=== PATIENT | female | born 1980 | race Caucasian/White ===

== ENCOUNTER 2016-09-23 16:07 | Inpatient (IN) | payer OTHER ==
[~2016-09-23] VITALS: Ht 162.6 cm; Wt 96.6 kg
[~2016-09-23 16:07] MED LIST: ASCO-294 PO; DOCU-41 PO; FERR-83 PO; IBUP800T28 PO; PREN-148 PO
--- NOTE | 2016-09-23 17:27 | DRSVH ---
PROCEDURE: US OB BIOPHYSICAL PROFILE AND UMBILICAL DOPPLER INDICATIONS: POSSIBLE IUGR - BLOOD FLOW OUTSIDE/PRIOR DATING DATA: Last menstrual period (LMP): 12/23/15. LMP-based estimated date of delivery (LYNETTE): 09/28/16. First dating scan (date and location): 04/03/16. Estimated date of delivery (LYNETTE) from first dating scan: 10/02/16. TECHNIQUE: Real-time scanning was performed of the fetus for biophysical profile, with image documentation. Col or and pulse Doppler interrogation was also performed of the umbilical artery near its insertion into the placenta. COMPARISON: [facility] Ultrasound, US, US OB FOLLOW UP GROWTH, 09/22/2016, 13:34. [facility] Ultrasound, US, US OB REEVAL INCOMP ANATMY LTD, 05/21/2016, 10:10. [facility] Ultrasound, US, US OB>14 WKS ANATOMY COMP, 05/06/2016, 10:07. [facility] Ultras ound, US, US OB FOLLOW UP GROWTH, 04/03/2016, 9:12. FINDINGS: General: A single living intrauterine gestation is present. Presentation: Vertex. Placenta: Placental position is anterior, without previa. OB-DEPUTY REGISTER OF DEEDS Ultrasound Procedure Report Summary Fetus Summary Heart Rate: 152 bpm Gestational Age from initial dating scan: 38 weeks, 5 days Findings(Amniotic Sac) Amniotic Fluid Index (SAW): 13.60 cm Pelvis and Uterus Cervix Length (Mean): 3.27 cm Biophysical Profile Amniotic Fluid Volume: 2 Breathin Gross Body Movement: 2 Tone: 2 Biophysical Profile Sum Score: 6 Findings(Pelvic Vascular Structure) Umbilical Artery S/D Ratio: 1.95, 2.51 There is normal appearance of the chest, stomach, kidneys and urinary bladder IMPRESSION: Single living intrauterine fetus in vertex presentation. Normal SAW. 6/8 biophysical profile score as above. Normal cord Doppler examination. Findings were provided to the patient's nurse (Debby Bonds RN) at the time of study 1715 hours on by the manager r d. Dictated by: Mane Carnes M.D. on 09/23/2016 at 17:22 Approved by: Mane Carnes M.D. on 09/23/2016 at 17:25
[2016-09-23] MEDS ORDERED: Lactated Ringer's 1,000 ML IV PRN (18:53)
[2016-09-23] MEDS ORDERED: Oxytocin 10 Unit/mL Inj IM PRN (18:55)
[2016-09-23] MEDS ORDERED: Penicillin G K Inj 5,000,000 UNITS in Dextrose 5% Minibag Plus 100 ML IV ONE (18:55)
[2016-09-23] MEDS ORDERED: Methylergonovine 0.2 mg/mL Inj IM PRN (18:55)
[2016-09-23] MEDS ORDERED: Carboprost 250 mCg/mL Inj IM PRN (18:55)
[2016-09-23] MEDS ORDERED: Ondansetron 2 mg/mL 2 mL Inj IVPUSH PRN (18:55)
[2016-09-23] MEDS ORDERED: Sodium Chloride LOK Flush 10 mL Syringe IVFLUSH PRN (18:55)
[2016-09-23] MEDS ORDERED: Oxytocin 30 Units/500 mL LR 30 UNITS in IV Premix 1 EACH IV PRN (18:55)
[2016-09-23] MEDS ORDERED: Hemorrhage Kit, Post Partum XX ONE (18:55)
[2016-09-23] MEDS ORDERED: fentaNYL-PF 50 mCg/mL 2 mL Inj IVPUSH PRN (18:55)
[2016-09-23] MEDS ORDERED: diphenhydrAMINE 50 mg Capsule PO PRN (18:55)
[2016-09-23 19:14] LABS: Mean Corpuscular Hemoglobin 30.9 pg (27.0-35.0); Mean Corpuscular Volume 89.6 fL (81-100)
--- NOTE | 2016-09-23 20:23 | PCM.HPOB ---
Subjective Referring Provider: Admitting Physician: Janae Dawkins MD Primary Care Physician: Nopcp Attending Physician: Janae Dawkins MD Chief Complaint "contractions" History of Present History of Present Illness Ms. Jim Edmond is a 36 year old woman at 39 weeks 2 days gestation with an LYNETTE of 09/28/2016 based on LMP who presented to the [facility] for a biophysical profile (BPP) and NST due to possible intrauterine growth restriction. Her BPP score was 6/8 but NST showed an early deceleration. Patient reports that she started to have contractions while here in the hospital. She has not had any fluid leakage, vaginal discharge, or bleeding. She does not have headache, blurred vision, chest pain, dyspnea, nausea, vomiting, or abdominal pain outside of contractions. She does not want an epidural at this time. 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 Ultrasound done on 09/22/2016 showed estimated weight in the 15th percentile, head circumference and femoral length estimated less than 5%. Gynecologic History: Denies history of sexual transmitted infections Menarche at age 16 Medical History: Depression Tobacco use History of substance abuse Surgical History: Tonsillectomy Hx Tobacco Use: Yes Smoking Status: Current Every Day Smoker (0.5 ppd) Hx Alcohol Use: No Hx Substance Use: Yes (Last methamphetamine use in 12/2015 when she found out that she was . Completed recovery program.) Past Family History Family History Maternal grandmother has diabetes mellitus Review of Systems Eyes: Denies: Blurred Vision, Double Vision Cardiovascular: Denies: Chest Pain Respiratory: Denies: SOB with Exertion Gastrointestinal: Denies: Abdominal Pain, Nausea, Vomiting Medications Home medications vitamin Allergy Coded Allergies: No Known Allergies (Verified , 10/09/04) Exam Vital Signs Temperature 36.5C, heart rate 76, blood pressure 124/61, respiratory rate 18 Exam Baseline currently 160s with variability and accelerations An early deceleration was noted prior to admission Constitutional: Well-developed, Well-nourished HEENT: Atraumatic, EOMI, Scleral Anicteric Lungs: Clear to Percussion, Normal Air Movement Heart: Regular Rate/Rhythm, Normal S1, Normal S2, No Murmurs/Rubs/Gallops Abdomen: Gravid Extremities: Pulses Palpable x4, Warm, Edema (mild bilateral ankles) Neurological/Psychiatric: Alert, Oriented X3, Cooperative, No Acute Distress Neuro: Grossly Neurologically Intact Labs/Diagnostics Labs Item Value Date Time White Blood Count 13.3 th/mm3 H 09/23/161899 Red Blood Count 4.53 mil/mm3 09/23/161899 Hemoglobin 14.0 g/dL 09/23/161899 Hematocrit 40.6 % 09/23/161899 Platelet Count 204 gregorio/L 09/23/161899 Urine Opiates Screen Negative 09/23/161717 Urine Methadone Screen Negative 09/23/161717 Urine Barbiturates Screen Negative 09/23/161717 Urine Amphetamines Screen Negative 09/23/161717 Urine Benzodiazepines Screen Negative 09/23/161717 Urine Cocaine Metabolite Screen Negative 09/23/161717 Urine Cannabinoids Screen Negative 09/23/161717 Maternal Blood Type: O (positive) Antibody Screen: negative Group B Strep Results: Positive Rubella: Immune Additional Information labs: Blood type O positive, antibody screen negative, varicella nonimmune, rubella immune, RPR nonreactive, HBsAg negative, HIV nonreactive, hepatitis C negative, hemoglobin A1c 5.2%, TSH 0.763, gonorrhea and chlamydia negative, GBS positive OB Intrapartum Assessment/Plan Assessment 36 year old woman at 39 weeks 2 days gestation with an LYNETTE of 09/28/2016 based on LMP who presented to the [facility] for a biophysical profile (BPP) and NST due to possible intrauterine growth restriction GBS positive Varicella non-immune Depression Tobacco use History of substance abuse Intrapartum plan 36 year old woman at 39 weeks 2 days gestation with an LYNETTE of 09/28/2016 based on LMP who presented to the [facility] for a biophysical profile (BPP) and NST due to possible intrauterine growth restriction This has been complicated by tobacco use, subchorionic hematoma visualized on initial ultrasound, varicella nonimmune, UTI treated with Macrobid at the start of , depression, short interval (last delivery was August 2015), 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 Ultrasound done on 09/22/2016 showed estimated weight in the 15th percentile, head circumference and femoral length estimated less than 5%. - GBS positive, start penicillin once contractions start - Start Pitocin for labor induction due heart rate deceleration - Continue to monitor heart rate Varicella non-immune - Vaccinate post- Depression - Monitor symptoms Tobacco use - Pt declined nicotine patch History of substance abuse -UDS negative in the hospital and patient had negative UDS at each visit Attending Statement The patient was seen and examined together with Dr. Lilian Abdalla DO on 2016 and I agree with the history, exam and plan as outlined in the note above. Lilian Abdalla DO Sep 23, 2016 19:50 Jen Mcdaniel MD Sep 24, 2016 08:13
[2016-09-23] MEDS: Lactated Ringer's 1,000 ML IV SCH (21:31)
[2016-09-24] MEDS: Penicillin G K Inj 3,000,000 UNITS in IV Premix 1 EACH IV SCH ×2 (02:33→06:36)
[2016-09-24] MEDS: Lactated Ringer's 1,000 ML IV SCH ×3 (05:02→13:55)
[2016-09-24] MEDS ORDERED: Lactated Ringer's 500 ML IV ONE (05:55)
[2016-09-24] MEDS ORDERED: Phenylephrine/NS-PF 100 mCg/mL 5 mL Syringe IVPUSH PRN (05:55)
[2016-09-24] MEDS ORDERED: Nalbuphine 10 mg/mL Inj IV PRN (05:55)
[2016-09-24] MEDS ORDERED: EPHEDrine Sulfate 50 mg/mL Inj IVPUSH PRN (05:55)
[2016-09-24] MEDS ORDERED: Atropine 1 mg/10 mL (Code) Syringe IVPUSH PRN (05:55)
[2016-09-24] MEDS ORDERED: Ondansetron 2 mg/mL 2 mL Inj IVPUSH PRN (05:55)
[2016-09-24] MEDS ORDERED: fentaNYL 2 mCg/mL-Bupiv 0.125% 100 ML EPIDURAL SCH (05:55)
--- NOTE | 2016-09-24 05:55 | PCM.HPANE ---
Patient Data Date of Service: Sep 24, 2016 Surgeon Admitting Provider:Janae Dawkins MD Attending Provider:Janae Dawkins MD Primary Care Physician:Nopcp Other Provider: Reason for Visit LABOR LABOR Ht/WT & BMI Body Mass Index Allergies Coded Allergies: No Known Allergies (Verified , 10/09/04) Past Anesthesia History Anesthesia History: Denies:: Abnormal Airway Diabetes History Hx Diabetes?: No MRSA MRSA: No Medications Hypertension Medication: No Home Meds Incl Beta Reynaldo: No Active Scripts Ascorbate Calcium (Vitamin C)500 Mg [id number] Mg PO DAILY #60 TABLET Take with Iron. Prov:Tato Watson DO 08/27/15 Ferrous Sulfate 325 Mg [id number] Mg PO DAILY #60 TABLET Ref 0 Prov:Tato Watson DO 08/27/15 Docusate Sodium (Colace)100 Mg [id number] Mg PO BID PRN For Constipation #60 CAPSULE Ref 0 Prov:Tato Watson DO 08/27/15 Ibuprofen 800 Mg [id number] Mg PO TID PRN For Pain #40 TABLET Prov:Tato Watson DO 08/27/15 Reported Medications Vit No.124/Iron/FA ( Vitamin Tablet)27 Mg Iron-800 Mcg Tablet1 Each PO DAILY 08/26/15 History History of ENT Problems?: No HEENT History: Denies:: Abnormal Airway Denture Type: None Teeth Condition: Broken Teeth Tooth Decay Missing Teeth Hx of Heart Problems?: No Cardiovascular History: Denies:: Irregular Heartbeat Hx of Respiratory Problem?: No Respiratory History: Denies:: Asthma Hx Neurologic Problems?: Yes (hx substance (methamphetamine) abuse, now sober) Hx of GI Problems?: No Hx of Problems?: No Hx Musculoskeletal Problems?: No Hx of Psycho/Social Problems?: Yes (substance abuse) Hx Surgeries?: No Hx Alcohol Use: NoHx Substance Use: Yes (Last methamphetamine use in 12/2015 when she found out that she was . Completed recovery program.) Smoking Status: Current Every Day Smoker (0.5 ppd) Stop/Bang Risk Assessment Category Category 1A: Patient has history of documented sleep apnea, and HAS NOT received any narcotic, sedative or anesthesia administration during this stay. Category 1B: Patient has history of documented sleep apnea, and HAS received any narcotic , sedative or anesthesia administration during this stay Category 2: Patient has SUSPECTED Obstructive Sleep Apnea, and HAS received any narcotic , sedative or anesthesia administration during this stay. Category 3: Patient has SUSPECTED Obstructive Sleep Apnea and HAS NOT received narcotic, sedative or anesthesia administration during this stay. Category 4: Outpatient in Procedural Areas with known sleep apnea or who screen positive for High Risk via the STOP/BANG questionnaire. Exam Exam Vital Signs seen RN charting, normal hemodynamics, oxygenation, respirations General Appearance: Alert, Oriented X3, Cooperative, No Acute Distress HEENT/AIRWAY: MP 2 Lungs: Clear to Auscultation, Normal Air Movement Heart: Regular Rate/Rhythm, Normal S1, Normal S2, No Murmurs/Rubs/Gallops Meds/Labs/Diagnostics Admission Meds Current Medications Penicillin G Potassium [id number] units/Dextrose/ Water 100 ml @ 240 mls/hr ONCE ONCE IV Last administered on 09/23/16 22:22; Start 09/23/16 at 18:55; Stop 02/28 at 19:19; Status DC Penicillin G Potassium/ Dextrose [id number] units/Premix 50 ml @ 100 mls/hr Q4 IV Last administered on 09/24/16 02:33; Start 09/24/16 at 00:30 Lactated Ringer's (Lr) 1,000 ml @ 125 mls/hr Q8H IV Last administered on 05:02; Start 09/23/16 at 18:53 Labs Test 09/23/16 17:17 09/23/16 17:18 09/23/16 19:00 Hold Urine Received (Received) Urine Opiates Screen Negative Urine Methadone Screen Negative Urine Barbiturates Screen Negative Urine Amphetamines Screen Negative Urine Benzodiazepines Screen Negative Urine Cocaine Metabolite Screen Negative Urine Cannabinoids Screen Negative White Blood Count 13.3th/mm3 (3.8-10.1) Red Blood Count 4.53mil/mm3 (3.90-5.20) Hemoglobin 14.0g/dL (12.0-15.6) Hematocrit 40.6% (35.0-46.0) Mean Corpuscular Volume 89.6fL (81-100) Mean Corpuscular Hemoglobin 30.9pg (27.0-35.0) Mean Corpuscular Hemoglobin Concent 34.5% (32.0-37.0) Red Cell Distribution Width 13.6% (12.3-15.4) Platelet Count 204bil/L (150-400) Plan Impression Patient chart reviewed, patient interviewed and anesthestic plan with risks, benefits, and alternatives discussed, and informed consent obtained. ASA Physical Status: ASA1 Plus Emergency Anesthetic Plan: Epidural Bene/Risks/Altern/Consents: Yes HP Complete Prior to Induction: Yes Anson Bullock MD Sep 24, 2016 05:54
[2016-09-24] MEDS ORDERED: fentaNYL 2 mCg/mL-Bupivicaine 0.125% 100 mL Premix EPIDURAL ONE (06:03)
[2016-09-24] MEDS: Sodium Chloride LOK Flush 10 mL Syringe IVFLUSH SCH ×2 (08:30→16:30)
[2016-09-24] MEDS ORDERED: Lactated Ringer's 1,000 ML IV SCH (12:24)
[2016-09-24] MEDS ORDERED: LANOlin HPA 7 Gm Ointment TOPICAL PRN (12:25)
[2016-09-24] MEDS ORDERED: Carboprost 250 mCg/mL Inj IM PRN (12:25)
[2016-09-24] MEDS ORDERED: Witch Hazel-Glycerin Pads TOPICAL PRN (12:25)
[2016-09-24] MEDS ORDERED: Methylergonovine 0.2 mg/mL Inj IM PRN (12:25)
[2016-09-24] MEDS ORDERED: Oxytocin 30 Units/500 mL LR 30 UNITS in IV Premix 1 EACH IV PRN (12:25)
[2016-09-24] MEDS ORDERED: Benzocaine (Dermoplast) 20% 60 Gm Spray TOPICAL PRN (12:25)
[2016-09-24] MEDS ORDERED: Oxytocin 10 Unit/mL Inj IM PRN (12:25)
[2016-09-24] MEDS ORDERED: Hemorrhage Kit, Post Partum XX ONE (12:25)
[2016-09-24] MEDS ORDERED: HYDROcodone-APAP 5-325 mg Tablet PO PRN (12:25)
--- NOTE | 2016-09-24 13:05 | OP ---
[address] [address] OPERATIVE REPORT PATIENT: ARNIE SOLORZANO : 1980 MR#: [id number] ADMIT: 09/23/2016 JOB ID: [id number] DATE OF SURGERY: 09/24/2016 SURGEON: Janae Dawkins MD PREOPERATIVE DIAGNOSIS(ES): POSTOPERATIVE DIAGNOSIS(ES): DELIVERY NOTE: This is a 36-year-old female, 5, para five now, at 39 weeks plus four days today. She was admitted to [facility] yesterday when she was planned for NST, BPP, and Doppler and noticed 3-4 minute prolonged decelerations. She was started on Pitocin induction this morning at around 4:00 to 5:00. She started to have labor pain and got epidural around 6:00. When I started my shift after 7:00 it was noted she has frequent contractions every 2-3 minutes with multiple recurrent variable decelerations and intermittent late decelerations. The baseline was also at around 170. At this time intrauterine resuscitation was performed with discontinuation of Pitocin, IV fluid, oxygen and change of position. The heart tracing gradually improved to category one and then Pitocin was restarted. At that time AROM was also performed. Before the AROM was performed, the vaginal bleeding was relatively heavier than normal show, which is dark red. After the AROM was done, noted at the very beginning of clear amniotic fluid and then hard to tell because of the vaginal bleeding. More likely is vaginal bleeding combined together with the fluid looks bloody. The heart tracing mostly looks reassuring with the baseline back to 140s with occasional variable decelerations. The variability of the heart tracing was moderate. No accelerations. After AROM with Pitocin, the patient gradually developed to 8 cm, and then 9 cm, and then full dilation. During this process still noticed relatively heavier show than most of the delivery. At this time we realized there is a possibility of partial margin placenta abruption. Two units of PRBC crossmatch and hold. When the patient was noted to be fully dilated, she was ROP position. She had back pain and she had a strong urge to push. The patient was instructed to push and there was significant descent of the head with pushing. With several contractions, the was delivered in DIVYA position. The shoulder and chest delivered without difficulty. The was placed on mother's chest. Cord clamped and cut. After delayed cord clamp was performed after the disappearing of the pulsation. Regular cord blood collected. After about 1 minute after delivery, the placenta also delivered. It was noticed blood clots attached to the placenta at about 1/3 of the whole area. Those are direct signs of partial abruption. After the placenta delivered, the uterus was massaged and noticed well contracted uterus. The vaginal bleeding was not heavy. Perineum examined and noticed no laceration. The placenta will be sent for pathology. The patient tolerated the procedure well. EBL during delivery was about 200 mL. All instruments, needles, laps, and gauzes counted correct twice. The score of the infant was 8 and nine. The weight was not available at dictation, subjectively likely SGA. MTDD
--- NOTE | 2016-09-24 18:49 | NUR ---
Social Work Note D/A/P: Referral Received. Pt reported a history of substance use to [facility] staff. BIOINFORMATICS DEVELOPER assessment requested. BIOINFORMATICS DEVELOPER spoke with green prize packer Kim and it was agreed that Pt could be seen by BIOINFORMATICS DEVELOPER on 09/25/2016. BLAKE Matthew, AAC
--- NOTE | 2016-09-24 23:54 | PCM.ANEP1 ---
Post Anesthesia PACU Phase 1 Assessment Anesthetic Administered: Epidural Level of Alertness: Awake, talking OJHNS's with Equal Strength: Yes Pain: No Nausea or Vomiting: No CV Function & Hydration Stable: Yes Airway Device: Oxygen Delivery: Room Air Lungs: Clear to Auscultation, Normal Air Movement Dermatome Level: Full Sensation PACU Phase 2 Assessment Complications: No Follow up Care: N/A Patient Instructions Provided: Yes Star Hdez MD Sep 24, 2016 23:54
[2016-09-25 07:46] LABS: Mean Corpuscular Hemoglobin 30.4 pg (27.0-35.0); Mean Corpuscular Volume 89.4 fL (81-100)
--- NOTE | 2016-09-25 07:56 | PCM.DIOB ---
Obstetrical Disch Instruction Dates of Hospitalization Date of Hospital Admission Sep 23, 2016 at 18:35 Providers Admitting Physician: Janae Dawkins MD Primary Care Physician: Richie Attending Physician: Janae Dawkins MD Diet Discharge Diet: No restrictions Activity Discharge Activity-General: Pelvic Rest for 6 weeks, Activity as pain allows, No lifting >10 pounds for 4-6 weeks Dressing and Incisional Care Hygiene: May shower, NO bathtub, hot tub or whirlpool, Perineal care, Sitz bath , Dermoplast spray, Witch Daniela pads Follow Up Plan Follow-up Provider (F9): Janae Dawkins MD Follow-up appointment: Weeks (6) Call your provider for: Fever or Chills, Shortness of breath, Heavy vaginal bleeding Scarlett Sidhu MD Sep 25, 2016 07:56
[2016-09-25] MEDS ORDERED: IBUP800T28 PO (07:57)
--- NOTE | 2016-09-25 08:57 | DIS ---
[address] [address] DISCHARGE SUMMARY PATIENT: ARNIE SOLORZANO : 1980 MR#: [id number] ADMIT: 09/23/2016 JOB ID: [id number] DIS: ADMISSION DIAGNOSES: 1. A 39 week intrauterine with nonreactive nonstress test and biophysical profile 6/8 with intrauterine growth restriction. 2. History of drug abuse previously. 3. Poor social situation without custody of her older children. 4. Varicella nonimmune status. 5. Tobacco use. 6. Advanced maternal age. DISCHARGE DIAGNOSES: 1. A 39 week intrauterine with nonreactive nonstress test and biophysical profile 6/8 with intrauterine growth restriction. 2. History of drug abuse previously. 3. Poor social situation without custody of her older children. 4. Varicella nonimmune status. 5. Tobacco use. 6. Advanced maternal age. PROCEDURE PERFORMED: Spontaneous vaginal delivery. REASON FOR ADMISSION: This is a 36-year-old, G6, P 4-0-1-4 female who presented at 39 plus 2 weeks gestation with EDC of September 28, 2016, to the Center for a biophysical profile after having a nonreactive NST with prolonged decel noted. Her BPP showed 6/8, and she was yosvany. She also had intrauterine growth restriction with estimated weight in the 15th percentile by the head circumference and femur length less than the 5th percentile, as well as advanced maternal age, history of drug abuse in remission previously using methamphetamine, poor social situation without custody of her older children, varicella nonimmune status, short interval , tobacco use, subchorionic hematoma diagnosed in the first trimester and depression. She was admitted and for planned induction of labor given her entire clinical picture and the fact that she was beyond 39 weeks of gestation. Had laboratory data showed blood type O positive. Antibody screen negative, rubella immune, varicella nonimmune, hep B surface antigen negative, RPR nonreactive, HIV negative and GBS positive. She was admitted, and penicillin was started per protocol. Pitocin was started for labor induction. An epidural was placed for pain relief and then she went on to deliver a liveborn female infant. Please see the operative report for full details regarding this. She did have periods of nonreassuring heart tones during this time, and AROM was performed which showed moderate vaginal bleeding concerning for a partial abruption. By day #1, her pain was well controlled. She was tolerating a regular diet, voiding and ambulating without difficulty. Social Work was consulted given her history of poor social situation, and she did have a CPS worker who was involved in her case, as she did not have custody of her older children. She was Rh positive. She was rubella immune and varicella nonimmune but this will be followed up in clinic. She was deemed stable for discharge on day #1. INSTRUCTIONS AT DISCHARGE: The patient was advised to remain on pelvic rest for six weeks including no tampons, douching, or intercourse. She was instructed to call with any signs or symptoms of infection including fever greater than 100.5 degrees, severe pain, malodorous vaginal discharge or bleeding more than a pad per hour. MEDICATIONS AT DISCHARGE: Included: 1. Ibuprofen 800 mg p.o. t.i.d. 2. She was asked to continue her vitamins as prescribed. laboratory data showed that her white count, which was 13.3 at the time of admission, decreased to 10.7 by day #1, her hemoglobin was 7.14 preoperatively and dropped down to 9.5. She was asked to continue her ferrous sulfate, which had previously been ordered in clinic. Her platelets were stable at 156 by day #1. All questions and concerns of the patient were answered. She was deemed stable for discharge on day #1, after Social Work had been consulted.
[2016-09-25 14:12] VITALS: BP 110/59; PULSE 76; RESP 20
--- NOTE | 2016-09-25 15:33 | NUR ---
Family Assessment: 09/25/16- 1430 Jim Edmond- MOB Baby Girl Mayito NENITA consulted for prior CPS involvement. This SW met with pt and family members to discuss DC plans and needs. Per Pt, Henrietta Pennington, CPS SW, has visited today and stated that pt is clear for dc. doctor of chiropractic confirmed this information. SW consulted to ensure pt care and needs were addressed. Pt states that all needs are met and that pt's boyfriend is on the way to pick her up now. Baby is not dc'ing with pt at this time due to low weight. Per CPS, pt has three months of negative drug screens. CPS is involved with pt and baby care. No further needs noted at this time. Hali Pedroza LMSW
--- NOTE | 2016-09-30 17:18 | PATH ---
SURGICAL PATHOLOGY Attending Physician:Janae Dawkins MD CASE STATUS: Signed Out PATIENT NAME: ARNIE SOLORZANO PID: [id number] : 1980 DATE COLLECTED:09/24/2016 00:00 SPECIMEN: Placenta CLINICAL HISTORY: ? PARTIAL PLACENTA ABRUPTION FINAL DIAGNOSIS: 1.KRISHNA PLACENTA: PLACENTA PARENCHYMA. WEIGHT: 398 GRAMS. CHORIONIC VILLOUS MATURATION IS CONSISTENT WITH MATURE PLACENTA. MODERATE INTER AND INTRAVILLOUS FIBRIN IS PRESENT. NO VILLITIS IDENTIFIED. RETROPLACENTAL HEMATOMA PRESENT (14.5 X 5.8 X 2.8 CM). NO DEFINITE EXTENSION OF HEMATOMA INTO DECIDUA OR VILLOUS STRUCTURES. UMBILICAL CORD: LENGTH 22.8 CM. ATTACHED 3.8 CM FROM THE PLACENTAL DISC MARGIN. THREE VESSELS PRESENT. NO FUNISITIS IDENTIFIED. MEMBRANES: RUPTURED 1.5 CM FROM THE PLACENTAL DISC MARGIN. NO CHORIOAMNIONITIS IDENTIFIED. ICD10 43.9 GROSS DESCRIPTION: The specimen is received in formalin, labeled with the patient requisition number, and consists of an intact placenta which includes the placental disc (398 g, 14.5 x 5.8 x 2.8 cm), membranes and umbilical cord (length-22.8 cm, diameter-1.0 x 0.7 cm). The membranes are ruptured 1.5 cm from the free edge of the placenta and are semitranslucent. The umbilical cord is attached 3.8 cm from the edge of the placenta and contains 3 vessels. The surface is smooth and shiny with no evidence of meconium identified. The maternal surface is dark maroon with normal cotyledon formation. A dark maroon rubbery blood clot (14.5 x 5.8 x 2.8 cm) is attached to the maternal surface along the periphery. An apparent abruption site (8.5 x 4.8 x 2.0 cm) is identified beneath the blood clot. The placental body is spongy with no nodules, masses, lesions, hematomas or infarcts identified. Section code: (A) edge of placenta with membranes, umbilical cord; (B-G) placenta, 6 full-thickness sections with apparent abruption; (H) placenta, one full-thickness section. 09/26/16 JM MICRO DESCRIPTION: See diagnosis. ICD-9 CODES: CPT CODES: 1: 25911 Electronically Signed Out Jamila Antoine MD [facility] [address], [place] [address] Technical component performed at [facility], [facility] [address], [place], [address]
== END 2016-09-25 18:05 | disposition home or self-care (01) | DRG 560 ==
LOC: FBCO 16:07 → FBC 18:35
PROVIDERS: ADMIT Obstetrics & Gynecology; ATTEND Obstetrics & Gynecology
PROC: 10E0XZZ Delivery of Products of Conception, External Approach (ICD-10-PCS; principal; 2016-09-24)
PROC: 10907ZC Drainage of Amniotic Fluid, Therapeutic from Products of Conception, Via Natural or Artificial Opening (ICD-10-PCS; 2016-09-24)
PROC: 3E033VJ Introduction of Other Hormone into Peripheral Vein, Percutaneous Approach (ICD-10-PCS; 2016-09-24)
DX: O76 Abnormality in fetal heart rate and rhythm complicating labor and delivery (principal); O45.93 Premature separation of placenta, unspecified, third trimester; O99.824 Streptococcus B carrier state complicating childbirth; O99.334 Smoking (tobacco) complicating childbirth; Z3A.39 39 weeks gestation of pregnancy; Z37.0 Single live birth; F17.210 Nicotine dependence, cigarettes, uncomplicated